=== PATIENT | female | born 1990 | race Caucasian/White ===

== ENCOUNTER 2016-09-08 02:05 | Emergency (ER) | payer OTHER ==
[2016-09-08] MEDS ORDERED: diphenhydrAMINE HCL 25 MG CAPSULE (FP) PO ONE ×2 (02:26→02:45)
--- NOTE | 2016-09-08 02:26 | PDOC ---
History of Present Illness <JeronimoDona downsan - Last Filed: 09/08/16 02:26> - General History Source: Patient Exam Limitations: No Limitations - History of Present Illness Initial Comments: 09/08/16 02:48 The patient is a 26 year old female (20 weeks ) with no significant past medical history who presents to the ED with 1 week of cold symptoms. Patient went to L&D for evaluation prior to coming down to the ER. She presents today with persistent dry cough and nasal congestion. The patient denies fever, chills, SOB, chest pain, and palpitations. The patient denies abdominal pain, nausea, vomiting, and diarrhea. Allergies: NDKA Social History: No alcohol, tobacco, or drug use reported. Past Surgical History: None reported <Dalia Frazier - Last Filed: 09/08/16 02:51> - General Chief Complaint: Cold Symptoms Stated Complaint: COUGH, VOMITING Time Seen by Provider: 09/08/16 02:20 Past History - Reproductive History (#): 2 Para: 1 Cervical CA: No Dysfunctional Uterine Bleeding: No Ectopic : No Endometrial CA: No Polycystic Ovaries: No Therapeutic (s) & number: No Tubal Ligation: No Spontaneous : 0 - Immunization History Immunization Up to Date: Yes - Psycho/Social/Smoking Cessation Hx Anxiety: No Suicidal Ideation: No Smoking History: Never smoked Have you smoked in the past 12 months: No Hx Alcohol Use: No Drug/Substance Use Hx: No Substance Use Type: None <Sacha Foreman - Last Filed: 09/08/16 02:26> <Dalia Frazier - Last Filed: 09/08/16 02:51> - Past Medical History Allergies/Adverse Reactions: Allergies Allergy/AdvReac Type Severity Reaction Status Date / Time No Known Allergies Allergy Verified 09/08/16 02:18 Home Medications: Ambulatory Orders Pnv95/Ferrous Fumarate/FA [ Caplet] 1 each PO DAILY 09/08/16 Review of Systems - Review of Systems Able to Perform ROS?: Yes Comments:: 09/08/16 02:48 CONSTITUTIONAL: Absent: fever, no chills, no fatigue EYES: Absent: visual changes ENT: +nasal congestion Absent: ear pain, no sore throat CARDIOVASCULAR: Absent: chest pain, no palpitations RESPIRATORY: +cough Absent: no SOB GI: Absent: abdominal pain, no nausea, no vomiting, no constipation, no diarrhea GENITOURINARY: Absent: dysuria, no frequency, no hematuria MUSKULOSKELETAL: Absent: back pain, no arthralgia, no myalgia SKIN: Absent: rash NEURO: Absent: headache <Dalia Frazier - Last Filed: 09/08/16 02:51> *Physical Exam - Vital Signs Last Vital Signs Temp Pulse Resp BP Pulse Ox 99 H 18 123/73 99 09/08/16 02:18 09/08/16 02:18 09/08/16 02:18 09/08/16 02:18 <Sacha Foreman - Last Filed: 09/08/16 02:26> - Vital Signs Last Vital Signs Temp Pulse Resp BP Pulse Ox 99 H 18 123/73 99 09/08/16 02:18 09/08/16 02:18 09/08/16 02:18 09/08/16 02:18 - Physical Exam Comments: 09/08/16 02:48 GENERAL: Well-appearing, well-nourished. No apparent distress. HEENT: Normocephalic, atraumatic. PERRL, EOM intact. Nasal congestion. CARDIOVASCULAR: Normal S1, S2. Regular rate and rhythm. PULMONARY: Clear to auscultation bilaterally. ABDOMEN: Gravid, non-tender. EXTREMITIES: Normal ROM in all four extremities. No gross deformities. SKIN: Warm, dry. No rash NEUROLOGICAL: No focal neurological deficits. <FreddieDalia - Last Filed: 09/08/16 02:51> ED Treatment Course - Medications Given in the ED: ED Medications Discontinued Medications Generic Name Dose Route Start Last Admin Trade Name Freq PRN Reason Stop Dose Admin Diphenhydramine HCl 25 mg 09/08/16 02:26 09/08/16 02:44 Benadryl - PO 09/08/16 02:27 25 mg ONCE ONE Administration <FreddieDalia - Last Filed: 09/08/16 02:51> Medical Decision Making - Medical Decision Making 09/08/16 02:25 Dr. Foreman: The scribe's documentation has been prepared under my direction and personally reviewed by me in its entirery. I confirm that the note above accurately reflects all work, treatment, procedures, and medical decision making performed by me. <Sacha Foreman - Last Filed: 09/08/16 02:26> - Medical Decision Making 09/08/16 02:48 I was informed by Dr. Cheung that pt is currently being treated with keflex for UTI. Pt was advised to continue to take keflex to help with URI symptoms. And to also take benadryl and continue to hydrate consistently. <Dalia Frazier - Last Filed: 09/08/16 02:51> *DC/Admit/Observation/Transfer - Discharge Dispostion Admit: No <Sacha Foreman - Last Filed: 09/08/16 02:26> - Attestations Scribe Attestion: 09/08/16 02:51 Documentation prepared by Dalia Frazier, acting as medical doctor for Sacha Foreman MD <Dalia Frazier - Last Filed: 09/08/16 02:51> Diagnosis at time of Disposition: Cough - Discharge Dispostion Disposition: HOME Condition at time of disposition: Stable - Patient Instructions Printed Discharge Instructions: DI for Common Cold, DI for Cough -- Adult
[2016-09-08 02:30] VITALS: BP 123/73; PULSE 99; BMI 26.2
== END 2016-09-08 03:07 | disposition home or self-care (01) ==
LOC: JER 02:05
DX: O99.89 Other specified diseases and conditions complicating pregnancy, childbirth and the puerperium (principal); J06.9 Acute upper respiratory infection, unspecified; Z3A.20 20 weeks gestation of pregnancy
CPT/HCPCS: 99282-25

== ENCOUNTER 2016-10-26 17:58 | Emergency (ER) | payer OTHER ==
[2016-10-26 18:22] VITALS: BP 127/70; PULSE 111; TEMP 98; BMI 26.9
--- NOTE | 2016-10-26 18:23 | PDOC ---
Rapid Medical Evaluation Time Seen by Provider: 10/26/16 18:18 Medical Evaluation: Allergies Allergy/AdvReac Type Severity Reaction Status Date / Time No Known Allergies Allergy Verified 10/26/16 18:19 10/26/16 18:20 26 yo F presents c/o a rash to the left side of her buttock [id number] ago and has spread to her lower back. Pt says her son has a similar rash x2 months ago and has been on going. Pt denies any fever, diff swallowing, sob. Pt is 32 weeks preg.
--- NOTE | 2016-10-26 19:22 | PDOC ---
History of Present Illness - General Chief Complaint: Rash Stated Complaint: RASH/32 WKS Time Seen by Provider: 10/26/16 18:18 History Source: Patient - History of Present Illness Timing/Duration: reports: other Location: reports: genitalia, torso Past History - Past Medical History Allergies/Adverse Reactions: Allergies Allergy/AdvReac Type Severity Reaction Status Date / Time No Known Allergies Allergy Verified 10/26/16 18:19 Home Medications: Ambulatory Orders Pnv95/Iron Fum/Folic Acid [ Caplet] 1 each PO DAILY 09/08/16 Permethrin 5% Topical Cream [Elimite -] 1 applic TP ONCE #60 grams 10/26/16 Other medical history: DENIES. - Reproductive History (#): 2 Para: 1 Cervical CA: No Dysfunctional Uterine Bleeding: No Ectopic : No Endometrial CA: No Polycystic Ovaries: No Therapeutic (s) & number: No Tubal Ligation: No Spontaneous : 0 - Immunization History Immunization Up to Date: Yes - Psycho/Social/Smoking Cessation Hx Anxiety: No Suicidal Ideation: No Smoking History: Never smoked Have you smoked in the past 12 months: No Hx Alcohol Use: No Drug/Substance Use Hx: No Substance Use Type: None Review of Systems - Review of Systems Constitutional: No: Chills, Fever Integumentary: Yes: Pruritus, Rash *Physical Exam - Vital Signs Last Vital Signs Temp Pulse Resp BP Pulse Ox 98 F 111 H 19 127/70 99 10/26/16 18:19 10/26/16 18:19 10/26/16 18:19 10/26/16 18:19 10/26/16 18:19 - Physical Exam General Appearance: Yes: Appropriately Dressed. No: Apparent Distress HEENT: positive: Normal Voice Neck: positive: Supple Respiratory/Chest: negative: Respiratory Distress Integumentary: positive: Dry, Warm, Rash Neurologic: positive: Fully Oriented, Alert, Normal Mood/Affect Medical Decision Making - Medical Decision Making 10/26/16 19:16 26-year-old female, currently 32 weeks , here with pruritic rash. Patient states son has similar rash and that she noticed rash after sleeping in her son's bed 2 weeks ago. Denies new cream, detergent or recent travel. No h/o similar rash. Patient has not taken anything for symptoms. No issues with . Patient well-appearing and stable with small, erythematous non- descript papules w/ excoriation and hemorrhagic crusted tips, strongly suggestive of scabies to trunk, gluteal cleft and groin. Of note, patient's son who is also a patient being seen by me and has similar appearing rash to fingerwebs, flexor aspect of wrists, axillary folds, gluteal cleft and groin. Will treat for scabies at this time with permethrin which is category B and safe for . Patient instructed to wash all linens/bedding/clothes in hot water and that she can return to work after starting treatment. Told there is no need for fumigation of living space at this time. To f/u with derm as needed *DC/Admit/Observation/Transfer Diagnosis at time of Disposition: Scabies - Discharge Dispostion Disposition: HOME Condition at time of disposition: Good - Prescriptions Prescriptions: Permethrin 5% Topical Cream [Elimite -] 1 applic TP ONCE #60 grams - Referrals Referrals: Cierra Fajardo MD [Staff Physician] - - Patient Instructions Printed Discharge Instructions: DI for Scabies Additional Instructions: Apply cream to affected areas and leave on for 8-14 hours before washing off with water. If symptoms do not completely resolve in 14 days, repeat application. If symptoms do not resolve after that, follow-up with Dr. Fajardo, of dermatology. Watch contaminated linens/beddings/clothes with hot water. There is no indication for fumigation of your living space at this time. You can return to work after starting treatment.
== END 2016-10-26 19:20 | disposition home or self-care (01) ==
LOC: JERFT 17:58
DX: O99.89 Other specified diseases and conditions complicating pregnancy, childbirth and the puerperium (principal); B86 Scabies; Z3A.32 32 weeks gestation of pregnancy
CPT/HCPCS: 99281-25

== ENCOUNTER 2016-12-25 09:00 | Inpatient (IN) | payer OTHER ==
--- NOTE | 2016-12-25 09:18 | HP ---
Admitting History and Physical - Admission Chief Complaint: labor pains, srom History of Present Illness: 26 y/o at 40.4 weeks comes with srom at 8am. Pt of [facility], gbs neg, hiv neg, rpr neg History Source: Patient Limitations to Obtaining History: No Limitations - Past Medical History [employer]ATING [employer]: No: Alzheimer's, CVA, Dementia, Migraine, Multiple Sclerosis, Peripheral Neuropathy, Parkinson's, Seizure, Syncope, TIA, Vertigo, Other Cardiovascular: No: AFIB, Aneurysm, Aortic Insufficiency, Aortic Stenosis, CAD, CHF, Deep Vein Thrombosis, HTN, Hyperlipdemia, [place], Mitral Insufficiency, Mitral Stenosis, Murmur, Pulmonary Hypertension, Other Pulmonary: No: Asthma, Bronchitis, Cancer, COPD, O2 Dependent, Pneumonia, Previously Intubated, Pulmonary Embolus, Pulmonary Fibrosis, Sleep Apnea, Other Gastrointestinal: No: Ascites, Cancer, Constipation, Crohn's Disease, Diverticulitis, Diverticulosis, Esophageal Varices, Gastritis, GERD, GI Bleed, Hemorrhoids, Hiatal Hernia, Inflamatory Bowel Disease, Irritable Bowel Disease, Pancreatitis, Peptic Ulcer Disease, Ulcerative Colitis, Other Hepatobiliary: No: Cirrhosis, Cholelithiasis, Cholecystitis, Choledocholithiasis , Hepatitis A, Hepatitis B, Hepatitis C, Other Renal/: No: Renal Failure, Renal Inusuff, BPH, Cancer, Hematuria, Hemodialysis , Neurogenic Bladder, Renal Calculi, UTI, Other Reproductive: No: Ectopic , Endometriosis, Fibroids, PID, Polycystic Ovary Syndrome, Postmenopausal, Other ...LMP: 03/14/16 Heme/Onc: No: Anemia, B12 Deficiency, Bleeding Disorder, Cancer, Current Chemotherapy, Current Radiation Therapy, Hemochromatosis, Hypercoaguable State, Myeloproliferative Synd, Sickle Cell Disease, Sickle Cell Trait, Thrombocytopenia, Other Infectious Disease: No: AIDS, C-Diff, Herpes Zoster, HIV, MRSA, STD's, Tuberculosis, VREF, Other Psych: No: Addictions, Anxiety, Bipolar, Depression, Panic, Psychosis, Schizophrenia, Other Musculoskeletal: No: Bursitis, Chronic low back pain, Hemiparesis, Hemiplegia, Osteoarthritis, Paraplegia, Other Rheumatology: No: Fibromyalgia, Gout, Lupus, Rheumatoid Arthritis, Sarcoidosis, Vasculitis, Other ENT: No: Allergic Rhinitis, Sinusitis, Other Endocrine: No: Suraj's Disease, Octavia's Disease, Diabetes Insipidus, Diabetes Mellitus, Hyperparathyroidism, Hyperthyroidism, Hypothyroidism, Osteopenia, SIADH, Other Dermatology: No: Basal Cell, Cellulitis, Eczema, Melanoma, Psoriasis, Squamous Cell, Other - Past Surgical History Past Surgical History: Yes: None - Advance Directives Advance Directives: No: Living Will, Health Care Proxy, DNR, Organ Donor, Tissue Donor, MOLST - Smoking History Smoking history: Never smoked Have you smoked in the past 12 months: No - Alcohol/Substance Use Hx Alcohol Use: No History of Substance Use: denies: None, Cocaine, Heroin, Marijuana, Prescription , Tranquilizers - Social History Usual Living Arrangement: No: Alone, With Spouse, With Parent, With Significant Other, With Child, Assisted Living, Snf, Other Home Medications - Allergies Allergies/Adverse Reactions: Allergies Allergy/AdvReac Type Severity Reaction Status Date / Time No Known Allergies Allergy Verified 12/20/16 16:44 - Home Medications Home Medications: Ambulatory Orders Pnv95/Iron Fum/Folic Acid [ Caplet] 1 each PO DAILY 09/08/16 Review of Systems - Review of Systems Constitutional: reports: No Symptoms Eyes: reports: No Symptoms HENT: reports: No Symptoms Neck: reports: No Symptoms Cardiovascular: reports: No Symptoms Respiratory: reports: No Symptoms Gastrointestinal: reports: No Symptoms Genitourinary: reports: No Symptoms Breasts: reports: No Symptoms Reported Musculoskeletal: reports: No Symptoms Integumentary: reports: No Symptoms Neurological: reports: No Symptoms Endocrine: reports: No Symptoms Hematology/Lymphatic: reports: No Symptoms Psychiatric: reports: No Symptoms Physical Examination Constitutional: Yes: Well Nourished Eyes: Yes: WNL HENT: Yes: WNL Neck: Yes: WNL Cardiovascular: Yes: WNL Respiratory: Yes: WNL Gastrointestinal: Yes: WNL ...Rectal Exam: Yes: WNL Renal/: Yes: WNL Breast(s): Yes: WNL Musculoskeletal: Yes: WNL Extremities: Yes: WNL Assessment/Plan as [facility] admit labs
[2016-12-25] MEDS ORDERED: ELECTROLYTE-148 SOLN 1,000 ML IV SCH (09:30)
[2016-12-25 09:50] LABS: BASOPHIL 0.4 % (0-2.0); EOSINOPHIL 0.8 % (0-4.5); MCH 31.2 pg (25.7-33.7); MCHC 33.1 g/dl (32.0-36.0); MEAN CELL VOLUME 94.3 fl (80-96); MEAN PLT VOLUME 8.7 fl (7.5-11.1); NEUTROPHILS 57.5 % (42.8-82.8); PLATELET COUNT 178 K/MM3 (134-434); RDW 16.1 % (11.6-15.6); WHITE BLOOD COUNT 8.6 K/mm3 (4.0-10.0)
[2016-12-25 09:53] VITALS: BMI 29.3
[2016-12-25] MEDS ORDERED: BUTORPHANOL TARTRATE 1 MG/ML VIAL IVPB PRN (10:00)
[2016-12-25 10:08] LABS: INR 0.94 (0.82-1.09); PROTHROMBIN TIME (PATIENT) 10.3 SEC (9.98-11.88)
[2016-12-25 10:11] LABS: ACTIVATED PTT 30.9 SECONDS (26.9-34.4)
[2016-12-25 10:14] LABS: CALCIUM 8.4 mg/dL (8.5-10.1); COCKROFT - GAULT 172.448; CREATININE 0.6 mg/dL (0.55-1.02)
[2016-12-25] MEDS ORDERED: BISACODYL 10 MG SUPP.RECT RC PRN (10:22)
[2016-12-25] MEDS ORDERED: BENZOCAINE 20% 57 GM BOTTLE TP PRN (10:22)
[2016-12-25] MEDS ORDERED: WITCH HAZEL 50% (TUCKS) 40 PAD/JAR PAD TP PRN (10:22)
[2016-12-25] MEDS ORDERED: METHYLERGONOVINE MALEATE 0.2 MG/1 ML AMP IM PRN (10:22)
[2016-12-25] MEDS ORDERED: BENZOCAINE 28 GM HEMORRHOIDAL OINTMENT TP PRN (10:22)
--- NOTE | 2016-12-25 10:22 | PN ---
Delivery - Delivery Vaginal Delivery: No Problems Section: Primary Type of Anesthesia: Local Episiotomy/Laceration: Midline EBL (cc): 300 Delivery, Single - [place] Feeding Plan Initial Plan: Elected not to breastfeed exclusively throughout hospitalization
[2016-12-25] MEDS ORDERED: OXYTOCIN 20 UNITS in 0.9% NS 1,000 ML IV SCH (10:30)
[2016-12-25] MEDS: IBUPROFEN 600 MG TABLET (FP) PO PRN (11:57)
[2016-12-26] MEDS: IBUPROFEN 600 MG TABLET (FP) PO PRN ×2 (07:56→15:19)
[2016-12-26] MEDS: ACETAMINOPHEN 325 MG TABLET (FP) PO PRN ×2 (07:57→15:19)
[2016-12-26 09:02] LABS: BASOPHIL 0.4 % (0-2.0); EOSINOPHIL 0.7 % (0-4.5); MCH 31.2 pg (25.7-33.7); MCHC 33.4 g/dl (32.0-36.0); MEAN CELL VOLUME 93.5 fl (80-96); MEAN PLT VOLUME 8.5 fl (7.5-11.1); NEUTROPHILS 65.5 % (42.8-82.8); PLATELET COUNT 134 K/MM3 (134-434); RDW 16.2 % (11.6-15.6)
[2016-12-26] MEDS ORDERED: SENNOSIDES/DOCUSATE COMBO (SENNA PLUS) TABLET (UD) PO PRN (22:00)
--- NOTE | 2016-12-26 23:47 | PN ---
Post Progress Note Post Day: 1 Type of Delivery: Vital Signs: Vital Signs Temperature 99.0 F 12/26/16 22:00 Pulse Rate 74 12/26/16 22:00 Respiratory Rate 20 12/26/16 22:00 Blood Pressure 134/74 12/26/16 22:00 O2 Sat by Pulse Oximetry (%) 100 12/25/16 11:00 Breast Exam: Yes: Soft Uterus: Yes: Fundus Firm Abdomen/GI: Yes: Abdomen soft Lochia: Yes: Rubra Lochia, amount: Small Extremities: Yes: Calves non-tender Perineum: Yes: Intact Activity: Ambulating - Labs Labs: CBC WBC 10.0 K/mm3 (4.0-10.0) 12/26/16 08:35 RBC 3.74 M/mm3 (3.60-5.2) 12/26/16 08:35 Hgb 11.7 GM/dL (10.7-15.3) 12/26/16 08:35 Hct 35.0 % (32.4-45.2) 12/26/16 08:35 MCV 93.5 fl (80-96) 12/26/16 08:35 MCHC 33.4 g/dl (32.0-36.0) 12/26/16 08:35 RDW 16.2 % (11.6-15.6) H 12/26/16 08:35 Plt Count 134 K/MM3 (134-434) D 12/26/16 08:35 MPV 8.5 fl (7.5-11.1) 12/26/16 08:35 Neutrophils % 65.5 % (42.8-82.8) 12/26/16 08:35 Lymphocytes % 22.4 % (8-40) D 12/26/16 08:35 Monocytes % 11.0 % (3.8-10.2) H 12/26/16 08:35 Eosinophils % 0.7 % (0-4.5) 12/26/16 08:35 Basophils % 0.4 % (0-2.0) 12/26/16 08:35 Assessment/Plan as [facility]ove reg diet oob dc home tomorrow
[2016-12-27 08:22] VITALS: BP 127/81; PULSE 73; TEMP 99.1
[2016-12-27] MEDS: IBUPROFEN 600 MG TABLET (FP) PO PRN (08:31)
[2016-12-27] MEDS: ACETAMINOPHEN 325 MG TABLET (FP) PO PRN (08:32)
== END 2016-12-27 12:25 | disposition home or self-care (01) | DRG 560 ==
LOC: JLDR 09:00 → J3W 12:09
PROVIDERS: ADMIT Obstetrics & Gynecology; ATTEND Obstetrics & Gynecology
PROC: 0W8NXZZ Division of Female Perineum, External Approach (ICD-10-PCS; principal; 2016-12-25)
DX: O48.0 Post-term pregnancy (principal); Z3A.40 40 weeks gestation of pregnancy; Z37.0 Single live birth
CPT/HCPCS: 36415; 59409; 80048; 85025; 85610; 85730; 86593; 86850; 86900; 86901